=== PATIENT | female | born 1985 | race Two or more races ===

== ENCOUNTER 2025-03-21 00:25 | Emergency (ER) | payer MEDICAID ==
[~2025-03-21] VITALS: Ht 157.5 cm; Wt 70.8 kg
[2025-03-21] MEDS ORDERED: KETOROLAC TROMETHAMINE 15 MG/ML VIAL ONE (02:42)
[2025-03-21] MEDS ORDERED: ONDANSETRON HCL/PF 4 MG/2 ML VIAL ONE (02:42)
[2025-03-21] MEDS: ONDANSETRON HCL/PF 4 MG/2 ML VIAL IVP ONE (02:46)
[2025-03-21] MEDS: IV NS 0.9% 1,000 ML BAG IV ONE (02:46)
[2025-03-21 02:50] LABS: PLATELET COUNT (AUTO) 260 K/uL (150-450); RED BLOOD CELL COUNT(AUTO) 4.02 MIL/uL (4.0-5.2); RED CELL DISTRIBUTION WIDTH 13.5 % (11.5-15.0); WHITE BLOOD COUNT (AUTO) 9.0 K/uL (4.3-11.0)
[2025-03-21 03:08] LABS: APPEARANCE,URINE CLEAR (CLEAR); BLOOD, URINE 3+ Ery/uL (NEGATIVE); LEUKOCYTE ESTERASE ,URINE NEGATIVE (NEGATIVE); NITRITE, URINE NEGATIVE (NEGATIVE); UGLUCOSE 1+ mg/dL (NEGATIVE)
[2025-03-21 03:10] LABS: PREGNANCY TEST URINE QUAL NEGATIVE (NEGATIVE)
[2025-03-21 03:10] LABS: CALCIUM, SERUM 8.7 mg/dL (8.5-10.1); CREATININE 0.6 mg/dL (0.6-1.3); SODIUM SERUM 138.0 mmol/L (136-145); UREA NITROGEN, BLOOD 11.0 mg/dL (7-18)
[2025-03-21 03:14] LABS: ADD URINE CULTURE NO; SQUAMOUS EPITHELIAL CELL,UR Few /HPF (None Seen)
[2025-03-21 03:15] LABS: ASPARTATE AMINOTRANSFERASE 10.0 U/L (15-37); INR 0.91 (0.91-1.10); TOTAL PROTEIN, SERUM 7.0 g/dL (6.4-8.2)
[2025-03-21] MEDS: KETOROLAC TROMETHAMINE 15 MG/ML VIAL IV ONE (03:15)
[2025-03-21 04:26] VITALS: BP 125/80; TEMP 98; O2SAT 96
== END 2025-03-21 04:27 | disposition home or self-care (01) ==
LOC: ER 00:33
DX: R10.9 Unspecified abdominal pain (principal); N20.0 Calculus of kidney; J45.909 Unspecified asthma, uncomplicated; E11.9 Type 2 diabetes mellitus without complications; F41.9 Anxiety disorder, unspecified
CPT/HCPCS: 99285; 74176; 96374; 96361; 96375; 85025; 80048; 83690; 80076; 84703; 81001; 36415; 85730; J1885; J2405; J7030

== ENCOUNTER 2025-05-10 13:10 | Emergency (ER) | payer MEDICAID ==
[~2025-05-10] VITALS: Ht 157.5 cm; Wt 59.0 kg
[2025-05-10 13:59] VITALS: BP 131/86; TEMP 98; O2SAT 97
== END 2025-05-10 15:39 | disposition left against medical advice (07) ==
LOC: ER 13:15
DX: R10.9 Unspecified abdominal pain (principal); R19.7 Diarrhea, unspecified